=== PATIENT | male | born 1955 | race Caucasian/White ===

== ENCOUNTER 2017-02-08 09:31 | Emergency (ER) | payer OTHER ==
[~2017-02-08] VITALS: Ht 172.7 cm; Wt 106.6 kg
[2017-02-08] MEDS ORDERED: ATOR1TAB21 PO ×2 (10:04→13:47)
[2017-02-08] MEDS ORDERED: ATEN50TA9 PO ×2 (10:05→13:47)
[2017-02-08] MEDS ORDERED: ALLO15TA GT ×2 (10:05→13:47)
--- NOTE | 2017-02-08 10:35 | REP ---
Right knee series: Five views. History: Injury and a fall. Findings: There is mild three compartment osteoarthritis with patellofemoral, medial and lateral compartment spurring. No erosive changes seen. No fracture is noted. There are periarticular soft tissue ossific densities superior and somewhat lateral to the patella which are probably extra-articular. In addition, there is a radiolucency in the distal femur 12 mm in diameter which is of uncertain significance. This has rounded contours and partially sclerotic margin. Exam is otherwise unremarkable. Impression: 1. No fracture seen. 2. Mild three compartment osteoarthritis. 3. Periarticular soft-tissue ossific densities in the extra-articular soft tissues superior to the patella. 4. 12 mm focal radiolucency in the distal femoral metaphysis of uncertain significance. Consider radionuclide bone scan. Signed by Homero Garcia MD 02/08/2017 01:08 P
[2017-02-08 14:48] VITALS: BP 132/90
== END 2017-02-08 15:58 | disposition home or self-care (01) ==
LOC: EDBD 09:31 → M ED 10:40
DX: S76.111A Strain of right quadriceps muscle, fascia and tendon, initial encounter (principal); W01.0XXA Fall on same level from slipping, tripping and stumbling without subsequent striking against object, initial encounter; Y92.828 Other wilderness area as the place of occurrence of the external cause; Y93.01 Activity, walking, marching and hiking; Y99.8 Other external cause status; I10 Essential (primary) hypertension; M10.9 Gout, unspecified

== ENCOUNTER → 2017-02-09 | Outpatient (CLI) | payer OTHER ==
[~2017-02-09] MED LIST: ALLO15TA GT; ATEN50TA9 PO; ATOR1TAB21 PO
--- NOTE | 2017-02-11 14:19 | ECGEPIP ---
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
== END ==
LOC: M EKG 12:02
PROVIDERS: ATTEND Orthopaedic Surgery
DX: I10 Essential (primary) hypertension (principal)